=== PATIENT | male | born 1995 | race Hispanic/Latino ===

== ENCOUNTER 2020-06-12 19:57 | Emergency (ER) | payer BC ==
[2020-06-12 20:34] LABS: Bilirubin Negative (Negative); Blood, Urine Negative (Negative); Clarity Clear (Clear); Glucose, Urine (Dipstick) Normal (Negative); Ketone, Urine Negative (Negative); Leukocyte Negative Leu/uL (Negative); Nitrite Negative (Negative); Protein, Urine (Dipstick) 10 mg/dL (Neg-Trace); Specific Gravity, Urine 1.029 (1.002-1.036); Urobilinogen Normal mg/dL (Less than 2); pH, Urine 6.5 (5.0-9.0)
--- NOTE | 2020-06-12 21:40 | ULT ---
TESTICULAR ULTRASOUND: Indications: Testicular pain. FINDINGS: Both testicles have a normal sonographic appearance. Color doppler with spectral analysis demonstrate s normal and equal blood flow to both testicles. There are bilateral tiny epididymal cysts. On the right small epididymal cyst in the head of the epid idymis measures in the 3-4 mm range. On the left, tiny epididymal cyst measures approximately 2 mm. IMPRESSION: Unremarkable testicular ultrasound. Small epididymal cysts are noted incidentally. POS: [facility]
[2020-06-14 21:38] LABS: Chlam.trachomatis by PCR,Urine Not Detected (NotDetected)
== END 2020-06-12 22:05 | disposition home or self-care (01) ==
LOC: ERS 19:57
DX: N50.3 Cyst of epididymis (principal)
CPT/HCPCS: 76870; 81003; 87491; 87591; 93976

== ENCOUNTER 2020-08-02 07:06 | Outpatient (CLI) | payer BC ==
--- NOTE | 2020-08-02 07:46 | ULT ---
EXAM: US Gallbladder RUQ CLINICAL HISTORY: Fatty liver. COMPARISON: None. FINDINGS: Pancreas: Obscured by bowel gas Liver:Heterogeneous echotexture which may be due to hepatic steatosis or hepatocellular disease. Subs equent limited evaluation for hepatic masses and intrahepatic biliary dilatation. Right hepatic lobe: 16.6 cm Gallbladder: No sonographic evidence of cholelithiasis, gallbladder wall thickening or pericholecysti c fluid. Ferrell's sign:Negative Portal Vein: Patent. Appropriate directional flow Bile ducts: The bilateral evaluation the common bile duct Right kidney: No hydronephrosis. Right kidney measures 4.9 x 5.4 x 10.4 cm in length. IMPRESSION: 1. Heterogeneous echotexture liver compatible with hepatic steatosis.
== END 2020-08-02 07:07 | disposition home or self-care (01) ==
LOC: BICULT 07:06
PROVIDERS: ATTEND Specialist
DX: K76.0 Fatty (change of) liver, not elsewhere classified (principal); R93.2 Abnormal findings on diagnostic imaging of liver and biliary tract
CPT/HCPCS: 76705

== ENCOUNTER 2020-08-24 14:28 | Outpatient (CLI) | payer BC ==
--- NOTE | 2020-08-24 15:07 | ULT ---
Scrotal sonogram with duplex evaluation HISTORY: Scrotal pain and numbness. FINDINGS: Right testicle is 4.0 cm length on today's exam and left 3.2 cm. Each has a normal appearance with go od color and spectral Doppler flow. Small cysts of the right epididymal head measure up to 0.7 cm greatest diameter. Survey of each inguinal canal reveals no abnormalities. IMPRESSION : No significant abnormalities are demonstrated.
== END 2020-08-24 14:29 | disposition home or self-care (01) ==
LOC: BICULT 14:28
PROVIDERS: ATTEND Specialist
DX: N50.89 Other specified disorders of the male genital organs (principal)
CPT/HCPCS: 76870; 93976

== ENCOUNTER 2022-05-03 00:40 | Emergency (ER) | payer BC ==
[2022-05-03] MEDS ORDERED: Proparacaine 0.5% Opth 15 ML BOT ONE (01:42)
[2022-05-03] MEDS ORDERED: Fluorescein Opthalmic Strip ONE ×2 (01:42→01:46)
== END 2022-05-03 02:08 | disposition home or self-care (01) ==
LOC: ERS 00:40
DX: H10.213 Acute toxic conjunctivitis, bilateral (principal)
CPT/HCPCS: 99283